=== PATIENT | female | born 1975 | race Hispanic/Latino ===

== ENCOUNTER 2019-01-23 09:14 | Emergency (ER) | payer OTHER ==
[~2019-01-23] VITALS: Ht 160 cm; Wt 97.5 kg
[2019-01-23 09:35] VITALS: BP 126/90
[2019-01-23 09:40] VITALS: BP 126/90
[2019-01-23] MEDS ORDERED: TORADOL IM STA (09:45)
--- NOTE | 2019-01-23 09:50 | ER.PDOC ---
General Chief Complaint: Lower Back Pain or Injury Stated Complaint: LOWER BACK PAIN, PAIN RUNS DOWN LEFT LEG Time seen by MD: 09:46 Source: patient Exam Limitations: no limitations History of Present Illness Initial Comments Left lower back pain radiating down the leg for 3 days. No fall or injury. Patient does a lot of lifting and bending at work. Patient has had a similar episode in the past a long time ago. Severity/Quality: moderate Radiation: lower legs (left) Method of Injury: bending, lifting Associated Symptoms: muscle spasms, lower back pain Past Medical History Medical History: diabetes Surgical History: LMP (females 10-50): 1 month Social History Smoking: non-smoker Alcohol Use: none Drug Use: none Review of Systems Constitutional: no symptoms reported EENTM: no symptoms reported Respiratory: no symptoms reported Cardiovascular: no symptoms reported Gastrointestinal: no symptoms reported Musculoskeletal: see HPI All Other Systems: Reviewed and Negative Physical Exam General Appearance: No Apparent Distress, WD/WN Neck: Non-Tender, Normal Alignment Cardiovascular/Respiratory: Regular Rate, Rhythm, No M/R/G, Normal Peripheral Pulses, No JVD, Normal Breath Sounds, No Respiratory Distress Gastrointestinal: Normal Bowel Sounds, No Organomegaly, No Pulsatile Mass, Non Tender, Soft Back: Other (tenderness left paraspinous muscles of L spine) Extremities: No Evidence of Injury, Normal Range of Motion, Non-Tender, No Pedal Edema, Pelvis Stable Neuro/Psych: Alert, 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, mood/effect nml, No Motor/Sensory Deficits, Relexes nml Results/Orders Results/Orders Orders - CAT BOYER MD Ketorolac Tromethamine (Toradol) (01/23/19 09:45) Vital Signs Date Time Temp Pulse Resp B/P (MAP) Pulse Ox O2 Delivery O2 Flow Rate FiO2 01/23/19 09:40 126/90 (102) Room Air 01/23/19 09:35 97.7 90 18 Room Air Course Vitals & review Data Vital Sign - Last 24 Hours 01/23/19 01/23/19 09:35 09:40 Temp 97.7 Pulse 90 Resp 18 B/P (MAP) 126/90 (102) O2 Delivery Room Air Room Air Departure Time of Disposition: 09:48 Disposition: 01 HOME, SELF-CARE Impression: Primary Impression: Low back pain Condition: Stable Referrals: PCP,UNKNOWN (PCP) PRIMARY CARE PROVIDER Additional Instructions: Tylenol #3 Flexeril Ibuprofen OTC 800mg PO TID for 7 days with food F/U with your PCP in 3-5 days Return if worsening or concerns Rest home and return to work on 01/25/19 Duration or Time Spent with Pa: 20 mins Problem Qualifiers Primary Impression: Low back pain Chronicity: acute Back pain laterality: left Sciatica presence: with sciatica Sciatica laterality: sciatica of left side Qualified Codes: M54.42 - Lumbago with sciatica, left side MERLIN,CAT Mortensen MD Jan 23, 2019 09:50
[2019-01-23] MEDS ORDERED: TORADOL ONE (09:51)
[2019-01-23 10:01] VITALS: BP 126/90
== END 2019-01-23 10:14 | disposition home or self-care (01) ==
LOC: ER 09:14
DX: M54.42 Lumbago with sciatica, left side (principal); E11.9 Type 2 diabetes mellitus without complications
CPT/HCPCS: 96372; 99283; J1885